=== PATIENT | male | born 1985 | race African-American/Black ===

== ENCOUNTER → 2017-01-25 | Day surgery (SDC) | payer OTHER ==
[~2017-01-25] VITALS: Ht 195.6 cm; Wt 88.5 kg
[~2017-01-25] MED LIST: BACITRACIN PWD 50,000 UNITS VIAL As Ordered ONE; BUPIVACAINE HCL 0.5% 30 ML VIAL As Ordered ONE; EUCECRE3 TOP; GLYCOPYRROLATE INJ 0.2 MG/ML 2 ML VIAL As Ordered ONE; KEFL500C7 PO; KETAMINE HCL 200 MG/20 ML VIAL As Ordered ONE; KETOROLAC 60 MG/2 ML VIAL (J1885) As Ordered ONE; LIDOCAINE 1% SDV 5 ML VIAL SQ ONE; LIDOCAINE 2% INJ 100 MG/5 ML SDV (FOR ANES.) As Ordered ONE; LIDOCAINE 2% MDV 20 ML VIAL As Ordered ONE; LR 1,000 ML IV SCH; METOCLOPRAMIDE INJ 10MG/2ML VIAL (J2765) IV PRN; MIDAZOLAM INJ 5 MG/ML VIAL (J2250) As Ordered ONE; NEOSPORIN GU IRRIG 20 ML VIAL As Ordered ONE; ONDANSETRON 4MG/2ML VIAL (J2405) As Ordered ONE; ONDANSETRON 4MG/2ML VIAL (J2405) IV PRN; PERCOCET 5MG/325MG TAB PO PRN; PROPOFOL 200 MG/20 ML VIAL As Ordered ONE; dexameTHASONE 4 MG/ML 1ML VIAL (J1100) As Ordered ONE; fentaNYL 250 MCG/5 ML INJECTION (J3010) As Ordered ONE
--- NOTE | 2017-01-25 14:46 | REP ---
Clinical: Bunionectomy. Technique: Portable AP, lateral, oblique views of the left foot. Findings: Postoperative changes are appreciated involving the first through fifth toes. Alignment appears satisfactory. Overlying postsurgical changes noted. Impression: Postoperative changes. Satisfactory alignment. Signed by Steve Galvin MD 01/25/2017 02:38 P
[2017-01-25 16:15] VITALS: BP 155/86
--- NOTE | 2017-01-26 10:55 | RO ---
DATE OF PROCEDURE: 01/25/2017 PREOPERATIVE DIAGNOSES: Hallux valgus interphalangeus deformity, left foot. Long second metatarsal left foot. Hammertoe deformity 2nd toe left foot. Hammertoe deformity 3rd toe left foot. Hammertoe deformity 4th toe left foot. Hammertoe deformity 5th toe left foot. Mallet toe deformity 2nd toe left foot. Mallet toe deformity 3rd toe left foot. Mallet toe deformity 4th toe left foot. Mallet toe deformity 5th toe left foot. POSTOPERATIVE DIAGNOSES: Hallux valgus interphalangeus deformity, left foot. Long second metatarsal left foot. Hammertoe deformity 2nd toe left foot. Hammertoe deformity 3rd toe left foot. Hammertoe deformity 4th toe left foot. Hammertoe deformity 5th toe left foot. Mallet toe deformity 2nd toe left foot. Mallet toe deformity 3rd toe left foot. Mallet toe deformity 4th toe left foot. Mallet toe deformity 5th toe left foot. SURGERY PERFORMED: 1. Distal Juan bunionectomy with internal screw fixation, 2.0 mm x 16 and 3.0 mm x 20. 2. Shortening 2nd metatarsal osteotomy with internal screw fixation, 2.5 mm x 14 mm times one. 3. Proximal interphalangeal joint arthroplasty with external wire fixation, 2nd toe left foot. 4. Distal interphalangeal joint arthroplasty with external wire fixation. 5. Proximal interphalangeal joint fusion with external wire fixation. 6. Distal interphalangeal joint arthroplasty with external wire fixation. 7. Proximal interphalangeal joint arthroplasty with external wire fixation, 4th toe left foot. 8. Distal interphalangeal joint arthroplasty with external wire fixation. 9. Proximal interphalangeal joint arthroplasty. 10. Dorsal capsulotomy 3rd metatarsal phalangeal joint left foot. 11. 4th metatarsal phalangeal joint capsulotomy. 12. Dorsal capsulotomy 5th metatarsal phalangeal joint left foot. SURGEON: Yrn Renee DPM ADJUSTER AND INSPECTOR: None ANESTHESIA: Local MAC HEMOSTASIS: Ankle pneumatic tourniquet for 119 minutes. HARDWARE UTILIZED: Right DART-FIRE 3.0 x 16, 3.0 x20, 2.5 x 14. K-wire fixation is 0.045 times three. DESCRIPTION OF PROCEDURE: On 01/25/2017, this 31-year-old black male was taken from his hospital room to the operating room and placed on the operating table in the supine position. Following the induction of IV sedation, local and regional anesthesia, the following procedure was performed: DISTAL JUAN OSTEOTOMY WITH INTERNAL SCREW FIXATION, 3.0 x 16 and 3.0 x 20, LEFT FOOT: Attention was directed to the patient's left foot where an incision from the neck of the first metatarsal to the interphalangeal joint of the hallux. This was medial to the extensor tendon. The incision was deepened through subcutaneous tissues and all coursing venous tributaries were identified, underscored, clamped, cut, ligated and electrocoagulated as necessary. A linear capsulotomy was then performed in the same plane as the original skin incision and a capsular periosteal type envelope was created dorsally and medially. This delivered into view the hypertrophied medial eminence of the 1st metatarsal which was osteotomized from distal to proximal through and through. This was extirpated from the wound in toto. Dissection was then carried into the first intermetatarsal space where there was noted to be considerable contracture of the fibular sesamoid from the conjoin tendon. This was released, however the hallux was still maintained in a lateral position. Therefore, the sesamoid was removed. Attention was then directed to the proximal phalanx where a distal Juan osteotomy was performed. This wedge shaped piece of bone was orientated with the base, distal and medially. Approximately a 5 mm wedge of bone was removed. Upon feathering the osteotomy, the hallux was noted to be in a straight position reducing the hallux valgus and interphalangeal deformity. A bone clamp was placed onto the proximal phalanx; however, the hinge was noted to be violated, therefore two points of fixation was elected to be placed. A 3.0 x 16 and a 3.0 x 20 screw were placed, however a 3.0 x 18 mm screw was initially utilized, but that did not provide adequate compression and therefore it was increased to a 20 mm 3.0 screw. The osteotomy was noted to be stable in all three cardinal planes. The wound was then flushed with copious amounts dilute bacitracin, neomycin and polymyxin B solution. Attention was directed towards closure where the capsular structures were coapted and maintained with #3-0 Vicryl in a simple interrupted type fashion. Subcutaneous tissue were coapted and maintained with #4-0 Vicryl in a simple interrupted type fashion. Skin incision was coapted and maintained utilizing #4-0 Prolene in a simple interrupted and horizontal mattress type fashion. Attention was then directed to the patient's 2nd metatarsal where the following procedure was performed: SHORTENING 2ND METATARSAL OSTEOTOMY WITH INTERNAL SCREW FIXATION 2.5 mm x 14 mm TIMES ONE: Attention was directed to the patient's 2nd metatarsal where a 4 cm incision was placed over the neck of the 2nd metatarsal. Dissection was then carried down and a linear capsulotomy was performed. A Maximino osteotomy was then performed starting at the articular cartilage of the 2nd metatarsal paralleling the plantar surface of the foot. The metatarsal was shortened approximately 5 mm using rongeur. The dorsal ledge was rongeured off. The osteotomy was noted to be stable in all three cardinal planes. The incision was then lengthened and the following procedure was performed: PROXIMAL INTERPHALANGEAL JOINT ARTHROPLASTY WITH EXTERNAL WIRE FIXATION: The extensor tendon was identified and a Z-plasty tendon lengthening was then performed. Medial and lateral collateral ligaments were sharply dissected free from the head of the proximal phalanx. Utilizing a power saw, an osteotomy was performed at the neck of the proximal phalanx from dorsal to plantar and medial to lateral through and through and extirpated from the wound. The following procedure was then performed: DISTAL INTERPHALANGEAL JOINT ARTHROPLASTY WITH EXTERNAL WIRE FIXATION 0.045 TIMES ONE: Two semi elliptical incisions were then placed over the distal interphalangeal joint and the wedge shaped skin was removed. The medial and lateral collateral ligaments were sharply dissected free from the distal interphalangeal joint. Utilizing a power saw, an osteotomy was performed through the middle phalanx from dorsal to plantar through and through at the anatomical neck. The toe was then stabilized with a 0.045 wire, initially driven through the distal phalanx then retrograded into the middle and proximal phalanx in the anatomic position. Attention was then directed towards closure where the extensor tendon was coapted and maintained with a four stranded braided nylon loop suture forming a four stranded Boyle core repair. The capsule over the second metatarsal was closed with#3-0 Vicryl in a simple interrupted type fashion. Skin incision was coapted and maintained using #4-0 Prolene in a simple interrupted and horizontal mattress type fashion. Attention was then directed to the 3rd toe where the following procedure was performed: PROXIMAL INTERPHALANGEAL JOINT ARTHROPLASTY WITH EXTERNAL WIRE FIXATION 0.045 TIMES ONE: Attention was then directed to the 3rd toe where the procedure performed on the proximal interphalangeal joint of the 2nd toe was now performed on the 3rd toe without variation or deletion, the only exception being that of anatomical location. Attention was then directed to the distal interphalangeal joint of the 3rd toe where the following procedure was performed: DISTAL INTERPHALANGEAL JOINT ARTHROPLASTY WITH EXTERNAL WIRE FIXATION 0.045 TIMES ONE, 3RD TOE LEFT FOOT: Attention was directed to the patient's distal interphalangeal joint of the 3rd toe where the procedure performed on the 2nd toe distal interphalangeal joint was now performed on the 3rd distal interphalangeal joint without variation or deletion, the only exception being that of anatomical location. Attention was then directed to the proximal interphalangeal joint of the 4th toe where the following procedure was performed: PROXIMAL INTERPHALANGEAL JOINT ARTHROPLASTY WITH EXTERNAL WIRE FIXATION 0.045 TIMES ONE, 4TH TOE LEFT FOOT: Attention was directed to the patient's 4th toe of the left foot at the proximal interphalangeal joint where the procedure performed on the 2nd proximal interphalangeal joint was now performed on the 4th proximal interphalangeal joint without variation or deletion, the only exception being that of anatomical location. Attention was then directed to the patient's distal interphalangeal joint of the 4th toe where the following procedure was performed: DISTAL INTERPHALANGEAL JOINT ARTHROPLASTY WITH EXTERNAL WIRE FIXATION 0.045 TIMES ONE, 4TH TOE LEFT FOOT: Attention was then directed to the patient's distal interphalangeal joint of the 4th toe where the procedure performed on the distal interphalangeal joint of the 2nd toe was now performed on the 4th toe without variation or deletion, the only exception being that of anatomical location. Attention was then directed to the proximal interphalangeal joint of the 5th toe where the following procedure was performed: PROXIMAL INTERPHALANGEAL JOINT ARTHROPLASTY 5TH TOE LEFT FOOT: Attention was directed to the patient's 5th toe of the left foot where a 3 cm incision was placed over the proximal interphalangeal joint of the 5th toe. The incision was deepened through subcutaneous tissue and all coursing venous tributaries were identified, underscored, clamped, cut, ligated and electrocoagulated as necessary. A transverse tenotomy capsulotomy was performed at the level of the proximal interphalangeal joint. Medial and lateral collateral ligaments were released. Utilizing a power saw an osteotomy was performed through the anatomical neck of the proximal phalanx from dorsal to plantar through and through and extirpated from the wound in toto. The wound was flushed with copious amounts of dilute bacitracin, neomycin and polymyxin B solution. Attention was directed towards closure where a four stranded Boyle stitch was performed through the extensor tendon with #4-0 braided nylon loop suture. Skin incision was coapted and maintained with #4-0 Prolene in a simple interrupted and horizontal mattress type fashion. Attention was then directed to the 3rd metatarsal phalangeal joint where the following procedure was performed: DORSAL CAPSULOTOMY 3RD METATARSAL PHALANGEAL JOINT LEFT FOOT: Attention was directed to the patient's 3rd metatarsal phalangeal joint where utilizing a Saxman 67 blade, a dorsal capsulotomy was performed on the metatarsal phalangeal joint. Attention was then directed to the patient's 4th metatarsal phalangeal joint where the following procedure was performed: DORSAL CAPSULOTOMY 4TH METATARSAL PHALANGEAL JOINT LEFT FOOT: Attention was directed to the patient's 4th metatarsal phalangeal joint of the left foot where the procedure performed on the 3rd metatarsal phalangeal joint was now performed on the 4th metatarsal phalangeal joint without variation or deletion, the only exception being that of anatomical location. Attention was then directed to the 5th metatarsal phalangeal joint where the following procedure was performed: DORSAL CAPSULOTOMY 5TH METATARSAL PHALANGEAL JOINT LEFT FOOT: Attention was directed to the patient's 5th metatarsal phalangeal joint of the left foot where the procedure performed on the 3rd metatarsal phalangeal joint was now performed on the 5th metatarsal phalangeal joint without variation or deletion, the only exception being that of anatomical location. Attention was then directed towards bandaging where a sterile compressive bandage was applied consisting of Adaptic over the surgical sites, 4x4, 4x4 splints, Ty, and Kerlix. A below the knee boot cast was then applied to the patient's left foot and ankle with fiberglass casting tape. At approximately the 2 hour interval, the tourniquet was released and all closure was obtained during this time frame. The patient having apparently tolerated the surgical procedure well, was taken from the OR to the recovery room with vital signs stable, patient afebrile for further monitoring by the anesthesia department. All surgical specimens removed during the operative procedure were sent to pathology for gross and microscopic examination. Postop instructions given upon discharge. CARLYN
== END | disposition home or self-care (01) ==
LOC: M SDC 09:01
PROVIDERS: ATTEND Podiatrist
DX: M20.12 Hallux valgus (acquired), left foot (principal); M20.42 Other hammer toe(s) (acquired), left foot; M21.6X2 Other acquired deformities of left foot; F17.210 Nicotine dependence, cigarettes, uncomplicated
CPT/HCPCS: 28285; 28298; 28308; 73630; 88300; 97116; C1776; J0690; J1100; J1885; J2250; J2405; J3010

== ENCOUNTER 2017-02-08 09:59 | Emergency (ER) | payer OTHER ==
[~2017-02-08] VITALS: Ht 195.6 cm; Wt 99.8 kg
[~2017-02-08 09:59] MED LIST changes: -BACITRACIN PWD 50,000 UNITS VIAL As Ordered ONE; -BUPIVACAINE HCL 0.5% 30 ML VIAL As Ordered ONE; -GLYCOPYRROLATE INJ 0.2 MG/ML 2 ML VIAL As Ordered ONE; -KEFL500C7 PO; -KETAMINE HCL 200 MG/20 ML VIAL As Ordered ONE; -KETOROLAC 60 MG/2 ML VIAL (J1885) As Ordered ONE; -LIDOCAINE 1% SDV 5 ML VIAL SQ ONE; -LIDOCAINE 2% INJ 100 MG/5 ML SDV (FOR ANES.) As Ordered ONE; -LIDOCAINE 2% MDV 20 ML VIAL As Ordered ONE; -LR 1,000 ML IV SCH; -METOCLOPRAMIDE INJ 10MG/2ML VIAL (J2765) IV PRN; -MIDAZOLAM INJ 5 MG/ML VIAL (J2250) As Ordered ONE; -NEOSPORIN GU IRRIG 20 ML VIAL As Ordered ONE; -ONDANSETRON 4MG/2ML VIAL (J2405) As Ordered ONE; -ONDANSETRON 4MG/2ML VIAL (J2405) IV PRN; -PERCOCET 5MG/325MG TAB PO PRN; -PROPOFOL 200 MG/20 ML VIAL As Ordered ONE; -dexameTHASONE 4 MG/ML 1ML VIAL (J1100) As Ordered ONE; -fentaNYL 250 MCG/5 ML INJECTION (J3010) As Ordered ONE
[2017-02-08] MEDS ORDERED: KEFL500C7 PO (10:09)
[2017-02-08] MEDS ORDERED: ALBUTEROL SULFATE 2.5 MG/0.5 ML INH NEB SOLN NEB ONE (11:30)
--- NOTE | 2017-02-08 11:32 | ED PDOC ---
Post-Departure Follow-Up PT PRESENTS TODAY STATING HE WENT TO SICK CALL YESTERDAY BECAUSE WHEN HE WOKE UP , HIS FRIEND NOTED HIS LEFT FOOT WAS DRAINING. PT RECENTLY HAD RECONSTRUCTIVE SURGERY ON HIS LEFT FOOT/TOES WITH DR. ROWLEY (PODIATRY) AND IS ON AN ANTIBIOTIC FOR THIS. HE STATES THE REDNESS TO THE LEFT LEG AND FOOT WERE WORSE YESTERDAY AND HE HAS BEEN HAVING LESS REDNESS AND DRAINAGE TODAY. STATES HAS AN APPT WITH DR. ROWLEY TOMORROW. STILL TAKING KEFLEX. MARY DELCID PA-C Feb 08, 2017 11:32
[2017-02-08 11:42] LABS: BASO % 0.4 % (0.0-1.0); EOS # 0.4 K/mm3 (0.0-0.50); EOS % 5.2 % (0.0-3.0); LARGE UNSTAINED CELL # 0.2 K/mm3 (0.0-0.4); LARGE UNSTAINED CELL % 2.3 % (0.0-4.0); LYMPH # 2.3 K/mm3 (1.5-4.5); LYMPH % 24.5 % (24.0-44.0); MEAN CORPUSCULAR HEMOGLOBIN 31.2 pg (27.0-33.0); MEAN CORPUSCULAR HGB CONC 33.6 g/dl (32.0-36.5); MEAN CORPUSCULAR VOLUME 92.9 fl (80.0-96.0); MONO # 0.7 K/mm3 (0.0-0.8); MONO % 8.4 % (0.0-5.0); NEUTROPHILS % 59.2 % (36.0-66.0); PLATELET COUNT, AUTOMATED 415 k/mm3 (150-450); RED CELL DISTRIBUTION WIDTH 12.8 % (11.5-14.5); WHITE BLOOD COUNT 8.5 K/mm3 (4.0-10.0)
[2017-02-08 12:00] LABS: ANION GAP 3 MEQ/L (8-16); BLOOD UREA NITROGEN 16 MG/DL (7-18); CALCIUM LEVEL 9.2 MG/DL (8.5-10.1); CARBON DIOXIDE LEVEL 29 MEQ/L (21-32); CHLORIDE LEVEL 107 MEQ/L (98-107); GLOMERULAR FILTRATION RATE > 60.0 (>60); GLUCOSE, FASTING 85 MG/DL (70-105); POTASSIUM SERUM 3.8 MEQ/L (3.5-5.1); SODIUM LEVEL 139 MEQ/L (136-145)
[2017-02-08 12:06] VITALS: BP 125/66
== END 2017-02-08 12:25 | disposition home or self-care (01) ==
LOC: M ED 10:14
DX: L03.116 Cellulitis of left lower limb (principal); R06.2 Wheezing; F17.200 Nicotine dependence, unspecified, uncomplicated